=== PATIENT | male | born 1970 | race African-American/Black ===

== ENCOUNTER 2019-06-13 05:44 | Observation (INO) ==
[2019-06-13] MEDS ORDERED: ALBUTEROL/IPRATROPIUM 3 ML NEB RESP TX STA (06:07)
[2019-06-13 06:31] LABS: Basophils % 0.4 % (0.0-0.8); Eosinophils # 0.1 10*3/uL (0.0-0.87); Eosinophils % 2.6 % (0.00-10.9); Hematocrit 42.8 VOL% (42.0-52.0); Immature Granulocytes % 0.2 %; Immature Granulocytes Absolute 0.01 #; Lymphocytes # 1.2 10*3/uL (1.4-4.0); Lymphocytes % 22.9 % (21.2-54.2); Mean Corpuscular HGB Conc 32.7 GM/DL (32-36); Mean Corpuscular Volume 91.8 FL (87-102); Mean Platelet Volume 11.8 FL (9.6-12.0); Neutrophils % 60.9 % (38.7-73.9); Platelet Count 179 T/CUMM (130-400); Red Blood Count 4.66 MC/CUMM (3.8-5.5); Red Cell Distribution Width 19.9 % (9.3-17.3); White Blood Count 5.1 T/CUMM (4-12)
[2019-06-13 07:04] LABS: Albumin 3.7 G/DL (3.4-5.0); Bilirubin,Total 0.9 MG/DL (0.2-1.0); Calcium 9.2 MG/DL (8.5-10.1); Osmolality,Calculated 285.5 MOS/KG (273-304); Total Protein 6.8 G/DL (6.4-8.3)
[2019-06-13] MEDS ORDERED: FUROSEMIDE 40 MG/4 ML VIAL IV STA (07:47)
[2019-06-13] MEDS ORDERED: ACETAMINOPHEN 325 MG TABLET PO PRN (10:25)
[2019-06-13] MEDS ORDERED: ONDANSETRON 4 MG/2 ML VIAL IV PRN (10:25)
[2019-06-13] MEDS ORDERED: ENOXAPARIN 30 MG/0.3 ML SYRINGE SUBCUT SCH (10:30)
[2019-06-13] MEDS ORDERED: CARVEDILOL 25 MG TABLET PO SCH (15:00)
[2019-06-13] MEDS ORDERED: LOSARTAN 25 MG TABLET PO SCH (15:00)
[2019-06-13] MEDS: DIGOXIN 0.125 MG TABLET PO SCH (15:06)
[2019-06-13] MEDS: SPIRONOLACTONE 25 MG TABLET PO SCH (15:07)
[2019-06-13] MEDS: FUROSEMIDE 40 MG/4 ML VIAL IV SCH (15:07)
[2019-06-13] MEDS: RIVAROXABAN 20 MG TABLET PO SCH (15:07)
[2019-06-13] MEDS: ATORVASTATIN 20 MG TABLET PO SCH (20:55)
[2019-06-13] MEDS ORDERED: SACUBITRIL/VALSARTAN 49-51 MG TABLET PO SCH (21:00)
[2019-06-13] MEDS: BACLOFEN 10 MG TABLET PO SCH (21:00)
[2019-06-14 05:49] LABS: Basophils % 0.7 % (0.0-0.8); Eosinophils # 0.1 10*3/uL (0.0-0.87); Eosinophils % 2.4 % (0.00-10.9); Hematocrit 39.1 VOL% (42.0-52.0); Hemoglobin 12.8 GM/DL (14.0-18.0); Immature Granulocytes % 0.2 %; Immature Granulocytes Absolute 0.01 #; Lymphocytes # 1.2 10*3/uL (1.4-4.0); Lymphocytes % 29.2 % (21.2-54.2); Mean Corpuscular HGB Conc 32.7 GM/DL (32-36); Mean Corpuscular Volume 91.1 FL (87-102); Mean Platelet Volume 12.3 FL (9.6-12.0); Neutrophils % 55.5 % (38.7-73.9); Platelet Count 173 T/CUMM (130-400); Red Blood Count 4.29 MC/CUMM (3.8-5.5); Red Cell Distribution Width 18.9 % (9.3-17.3); White Blood Count 4.2 T/CUMM (4-12)
[2019-06-14 06:00] LABS: Calcium 8.9 MG/DL (8.5-10.1); Osmolality,Calculated 287.3 MOS/KG (273-304)
[2019-06-14] MEDS: SPIRONOLACTONE 25 MG TABLET PO SCH (09:33)
[2019-06-14] MEDS: PANTOPRAZOLE 40 MG TABLET PO SCH (09:33)
[2019-06-14] MEDS: ASPIRIN EC 81 MG TABLET PO SCH (09:33)
[2019-06-14] MEDS: SACUBITRIL/VALSARTAN 49-51 MG TABLET PO SCH ×2 (09:33→21:24)
[2019-06-14] MEDS: CARVEDILOL 6.25 MG TABLET PO SCH ×2 (09:33→17:14)
[2019-06-14] MEDS: DIGOXIN 0.125 MG TABLET PO SCH (09:33)
[2019-06-14] MEDS: FUROSEMIDE 40 MG/4 ML VIAL IV SCH ×2 (09:34→17:14)
[2019-06-14] MEDS: RIVAROXABAN 20 MG TABLET PO SCH (09:34)
[2019-06-14] MEDS: BACLOFEN 10 MG TABLET PO SCH ×2 (09:35→21:21)
[2019-06-14] MEDS: ATORVASTATIN 20 MG TABLET PO SCH (21:21)
[2019-06-15 05:32] LABS: Basophils % 0.9 % (0.0-0.8); Eosinophils # 0.1 10*3/uL (0.0-0.87); Eosinophils % 3.1 % (0.00-10.9); Hematocrit 38.4 VOL% (42.0-52.0); Hemoglobin 12.6 GM/DL (14.0-18.0); Immature Granulocytes % 0.3 %; Immature Granulocytes Absolute 0.01 #; Lymphocytes % 30.7 % (21.2-54.2); Mean Corpuscular HGB Conc 32.8 GM/DL (32-36); Mean Corpuscular Volume 90.6 FL (87-102); Mean Platelet Volume 11.6 FL (9.6-12.0); Monocytes % 13.2 % (1.7-12.7); Neutrophils % 51.8 % (38.7-73.9); Platelet Count 168 T/CUMM (130-400); Red Blood Count 4.24 MC/CUMM (3.8-5.5); Red Cell Distribution Width 18.8 % (9.3-17.3); White Blood Count 3.3 T/CUMM (4-12)
[2019-06-15 06:08] LABS: Calcium 8.9 MG/DL (8.5-10.1); Osmolality,Calculated 289.1 MOS/KG (273-304)
[2019-06-15 07:21] VITALS: BP 106/76
[2019-06-15] MEDS ORDERED: FUROSEMIDE 40 MG TABLET PO SCH (09:00)
[2019-06-15] MEDS: DIGOXIN 0.125 MG TABLET PO SCH (09:30)
[2019-06-15] MEDS: ASPIRIN EC 81 MG TABLET PO SCH (09:30)
[2019-06-15] MEDS: SACUBITRIL/VALSARTAN 49-51 MG TABLET PO SCH (09:31)
[2019-06-15] MEDS: PANTOPRAZOLE 40 MG TABLET PO SCH (09:31)
[2019-06-15] MEDS: RIVAROXABAN 20 MG TABLET PO SCH (09:31)
[2019-06-15] MEDS: CARVEDILOL 6.25 MG TABLET PO SCH (09:31)
[2019-06-15] MEDS: BACLOFEN 10 MG TABLET PO SCH (09:31)
[2019-06-15] MEDS: SPIRONOLACTONE 25 MG TABLET PO SCH (09:31)
[2019-06-15] MEDS: FUROSEMIDE 40 MG/4 ML VIAL IV SCH (09:55)
== END 2019-06-15 09:45 | disposition home or self-care (01) ==
LOC: N.ED 05:44 → N.EDINP 05:44 → N.2E 11:45
PROVIDERS: ADMIT Internal Medicine Cardiovascular Disease; ATTEND Internal Medicine Cardiovascular Disease

== ENCOUNTER 2019-06-20 10:16 | Inpatient (IN) ==
[2019-06-20 11:29] LABS: Basophils % 0.8 % (0.0-0.8); Eosinophils # 0.2 10*3/uL (0.0-0.87); Eosinophils % 4.1 % (0.00-10.9); Hematocrit 40.3 VOL% (42.0-52.0); Hemoglobin 13.2 GM/DL (14.0-18.0); Lymphocytes # 0.8 10*3/uL (1.4-4.0); Lymphocytes % 22.2 % (21.2-54.2); Mean Corpuscular HGB Conc 32.8 GM/DL (32-36); Mean Corpuscular Volume 92.2 FL (87-102); Mean Platelet Volume 11.6 FL (9.6-12.0); Monocytes % 11.4 % (1.7-12.7); NRBC # 0.03 10*3/uL; Neutrophils % 61.5 % (38.7-73.9); Platelet Count 174 T/CUMM (130-400); Red Blood Count 4.37 MC/CUMM (3.8-5.5); Red Cell Distribution Width 19.2 % (9.3-17.3); White Blood Count 3.7 T/CUMM (4-12)
[2019-06-20 11:42] LABS: INR 1.6; PT Patient Result 17.1 SECS (9.6-12.2); Partial Thromboplastin Time 31.1 SECS (20.8-36.0)
[2019-06-20 11:50] LABS: Alanine Aminotransferase 45 U/L (16-61); Albumin 3.3 G/DL (3.4-5.0); Alkaline Phosphatase 74 U/L (45-117); Aspartate Amino Transferase 26 U/L (0-37); Blood Urea Nitrogen 25 MG/DL (7-18); Calcium 9.1 MG/DL (8.5-10.1); Glucose 126 MG/DL (74-106); Osmolality,Calculated 288.1 MOS/KG (273-304); Total Protein 6.4 G/DL (6.4-8.3); Troponin I 0.026 NG/ML (0.00-0.045)
[2019-06-20] MEDS ORDERED: DOCUSATE SODIUM 100 MG CAPSULE PO PRN (12:57)
[2019-06-20] MEDS ORDERED: ACETAMINOPHEN 325 MG TABLET PO PRN (12:57)
[2019-06-20] MEDS ORDERED: MAGNESIUM SULF RIDER 2 GM in PREMIX 1 EACH IV PRN (12:57)
[2019-06-20] MEDS ORDERED: ONDANSETRON 4 MG/2 ML VIAL IV PRN (12:57)
[2019-06-20] MEDS ORDERED: POTASSIUM CHLORIDE 20 MEQ TABLET PO PRN (12:57)
[2019-06-20] MEDS ORDERED: ZALEPLON 5 MG CAPSULE PO PRN (12:57)
[2019-06-20] MEDS ORDERED: MAGNESIUM SULF RIDER 4 GM in PREMIX 1 EACH IV PRN (12:57)
[2019-06-20] MEDS ORDERED: ENOXAPARIN 40 MG/0.4 ML SYRINGE SUBCUT SCH (13:00)
[2019-06-20] MEDS: FUROSEMIDE 40 MG/4 ML VIAL IV SCH ×2 (13:22→21:43)
[2019-06-20 15:04] LABS: Troponin I 0.019 NG/ML (0.00-0.045)
[2019-06-20] MEDS: CARVEDILOL 6.25 MG TABLET PO SCH (16:32)
[2019-06-20 17:00] LABS: Troponin I 0.023 NG/ML (0.00-0.045)
[2019-06-20] MEDS ORDERED: diphenhydrAMINE CAP 25 MG CAPSULE PO PRN (17:05)
[2019-06-20] MEDS ORDERED: MAGNESIUM HYDROXIDE SUSP 30 ML UDCUP PO PRN (17:05)
[2019-06-20 17:11] LABS: Barbiturates Screen,Urine Negative (Negative); Benzodiazepines Screen,Urine Negative (Negative); Cannabinoid Screen,Urine Negative (Negative); Opiate Screen,Urine Negative (Negative); Phencyclidine Screen,Urine Negative (Negative)
[2019-06-20 20:10] LABS: Troponin I 0.029 NG/ML (0.00-0.045)
[2019-06-20] MEDS: BACLOFEN 10 MG TABLET PO SCH (21:42)
[2019-06-20] MEDS: SACUBITRIL/VALSARTAN 49-51 MG TABLET PO SCH (21:42)
[2019-06-20] MEDS: ATORVASTATIN 20 MG TABLET PO SCH (21:42)
[2019-06-21 06:54] LABS: Basophils % 1.1 % (0.0-0.8); Eosinophils # 0.2 10*3/uL (0.0-0.87); Eosinophils % 4.5 % (0.00-10.9); Hematocrit 39.4 VOL% (42.0-52.0); Hemoglobin 12.8 GM/DL (14.0-18.0); Immature Granulocytes % 0.3 %; Immature Granulocytes Absolute 0.01 #; Lymphocytes % 26.8 % (21.2-54.2); Mean Corpuscular HGB Conc 32.5 GM/DL (32-36); Mean Corpuscular Volume 91.6 FL (87-102); Mean Platelet Volume 12.1 FL (9.6-12.0); Monocytes % 13.4 % (1.7-12.7); Neutrophils % 53.9 % (38.7-73.9); Platelet Count 166 T/CUMM (130-400); Red Cell Distribution Width 19.2 % (9.3-17.3); White Blood Count 3.6 T/CUMM (4-12)
[2019-06-21 07:28] LABS: Calcium 8.8 MG/DL (8.5-10.1)
[2019-06-21] MEDS: BACLOFEN 10 MG TABLET PO SCH ×2 (09:43→21:31)
[2019-06-21] MEDS: ASPIRIN EC 81 MG TABLET PO SCH (09:43)
[2019-06-21] MEDS: SPIRONOLACTONE 25 MG TABLET PO SCH (09:43)
[2019-06-21] MEDS: PANTOPRAZOLE 40 MG TABLET PO SCH (09:43)
[2019-06-21] MEDS: RIVAROXABAN 20 MG TABLET PO SCH (09:43)
[2019-06-21] MEDS: CARVEDILOL 6.25 MG TABLET PO SCH ×2 (09:43→17:11)
[2019-06-21] MEDS: FUROSEMIDE 40 MG/4 ML VIAL IV SCH ×2 (09:44→21:31)
[2019-06-21] MEDS: NICOTINE 21 MG/24 HR PATCH TRANSDERM SCH (13:53)
[2019-06-21] MEDS: SACUBITRIL/VALSARTAN 49-51 MG TABLET PO SCH ×2 (14:46→21:31)
[2019-06-21] MEDS: AMIODARONE 200 MG TABLET PO SCH (21:31)
[2019-06-21] MEDS: ATORVASTATIN 20 MG TABLET PO SCH (21:31)
[2019-06-22] MEDS: NICOTINE 21 MG/24 HR PATCH TRANSDERM SCH (08:55)
[2019-06-22] MEDS: FUROSEMIDE 40 MG/4 ML VIAL IV SCH (08:57)
[2019-06-22] MEDS: AMIODARONE 200 MG TABLET PO SCH ×2 (08:59→20:56)
[2019-06-22] MEDS: CARVEDILOL 6.25 MG TABLET PO SCH ×2 (08:59→17:05)
[2019-06-22] MEDS: RIVAROXABAN 20 MG TABLET PO SCH (08:59)
[2019-06-22] MEDS: ASPIRIN EC 81 MG TABLET PO SCH (08:59)
[2019-06-22] MEDS: PANTOPRAZOLE 40 MG TABLET PO SCH (09:00)
[2019-06-22] MEDS: SPIRONOLACTONE 25 MG TABLET PO SCH (09:00)
[2019-06-22] MEDS: BACLOFEN 10 MG TABLET PO SCH ×2 (09:00→20:56)
[2019-06-22] MEDS: SACUBITRIL/VALSARTAN 49-51 MG TABLET PO SCH ×2 (09:24→20:56)
[2019-06-22] MEDS ORDERED: DIGOXIN 0.125 MG TABLET PO SCH (13:00)
[2019-06-22] MEDS: ATORVASTATIN 20 MG TABLET PO SCH (20:56)
[2019-06-23 05:53] LABS: Eosinophils # 0.1 10*3/uL (0.0-0.87); Eosinophils % 2.5 % (0.00-10.9); Hematocrit 39.5 VOL% (42.0-52.0); Hemoglobin 13.1 GM/DL (14.0-18.0); Immature Granulocytes % 0.2 %; Immature Granulocytes Absolute 0.01 #; Lymphocytes # 1.1 10*3/uL (1.4-4.0); Lymphocytes % 26.2 % (21.2-54.2); Mean Corpuscular HGB Conc 33.2 GM/DL (32-36); Mean Corpuscular Volume 91.2 FL (87-102); Mean Platelet Volume 12.3 FL (9.6-12.0); Monocytes % 10.6 % (1.7-12.7); NRBC # 0.02 10*3/uL; Neutrophils % 59.5 % (38.7-73.9); Platelet Count 163 T/CUMM (130-400); Red Blood Count 4.33 MC/CUMM (3.8-5.5); Red Cell Distribution Width 18.5 % (9.3-17.3)
[2019-06-23 06:16] LABS: Calcium 8.8 MG/DL (8.5-10.1); Osmolality,Calculated 282.5 MOS/KG (273-304)
[2019-06-23] MEDS ORDERED: FUROSEMIDE 40 MG/4 ML VIAL IV SCH (08:00)
[2019-06-23] MEDS: ASPIRIN EC 81 MG TABLET PO SCH (09:15)
[2019-06-23] MEDS: metOLazone 2.5 MG TABLET PO SCH ×2 (09:15→09:23)
[2019-06-23] MEDS: SPIRONOLACTONE 25 MG TABLET PO SCH (09:15)
[2019-06-23] MEDS: AMIODARONE 200 MG TABLET PO SCH (09:15)
[2019-06-23] MEDS: RIVAROXABAN 20 MG TABLET PO SCH (09:15)
[2019-06-23] MEDS: BACLOFEN 10 MG TABLET PO SCH (09:16)
[2019-06-23] MEDS: NICOTINE 21 MG/24 HR PATCH TRANSDERM SCH (09:16)
[2019-06-23] MEDS: PANTOPRAZOLE 40 MG TABLET PO SCH (09:16)
[2019-06-23] MEDS: SACUBITRIL/VALSARTAN 49-51 MG TABLET PO SCH (09:16)
[2019-06-23] MEDS: CARVEDILOL 6.25 MG TABLET PO SCH (09:16)
[2019-06-23 12:05] VITALS: BP 99/56
== END 2019-06-23 16:04 | disposition home or self-care (01) | DRG 194 ==
LOC: N.ED 10:16 → N.EDINP 10:16 → N.TELEN 13:30
PROVIDERS: ADMIT Internal Medicine Cardiovascular Disease; ATTEND Internal Medicine Cardiovascular Disease

== ENCOUNTER 2019-07-11 18:23 | Inpatient (IN) ==
[2019-07-11 18:59] LABS: Hematocrit 42.5 VOL% (42.0-52.0); Immature Granulocytes % 0.4 %; Immature Granulocytes Absolute 0.02 #
[2019-07-11] MEDS ORDERED: SODIUM CHLORIDE 0.9% 1,000 ML IV STA ×3 (19:16→20:53)
[2019-07-11 19:23] LABS: Basophils % 0.4 % (0.0-0.8); Eosinophils # 0.1 10*3/uL (0.0-0.87); Eosinophils % 2.3 % (0.00-10.9); Hemoglobin 15.7 GM/DL (14.0-18.0); Lymphocytes # 0.6 10*3/uL (1.4-4.0); Lymphocytes % 12.6 % (21.2-54.2); Mean Corpuscular HGB Conc 36.9 GM/DL (32-36); Mean Corpuscular Volume 81.7 FL (87-102); Mean Platelet Volume 10.7 FL (9.6-12.0); Monocytes % 11.2 % (1.7-12.7); Neutrophils % 73.1 % (38.7-73.9); Platelet Count 192 T/CUMM (130-400); White Blood Count 4.8 T/CUMM (4-12)
[2019-07-11 19:24] LABS: Alanine Aminotransferase 14 U/L (16-61); Albumin 3.9 G/DL (3.4-5.0); Alkaline Phosphatase 66 U/L (45-117); Aspartate Amino Transferase 8 U/L (0-37); Blood Urea Nitrogen 102 MG/DL (7-18); Calcium 8.9 MG/DL (8.5-10.1); Estimated Glom Filtration Rate 8 ML/MIN; Glucose 123 MG/DL (74-106); Osmolality,Calculated 266.8 MOS/KG (273-304); Total Protein 7.2 G/DL (6.4-8.3)
[2019-07-11] MEDS ORDERED: NOREPINEPHRINE 4 MG/4 ML VIAL IV ONE (19:43)
[2019-07-11] MEDS: NOREPINEPHRINE 8 MG in SODIUM CHLORIDE 0.9% 242 ML IV PRN (19:46)
[2019-07-11 19:59] LABS: Troponin I 0.034 NG/ML (0.00-0.045)
[2019-07-11] MEDS ORDERED: SODIUM BICARBONATE 50 MEQ/50 ML VIAL IV STA (20:51)
[2019-07-11] MEDS ORDERED: SODIUM BICARB INJ 50 MEQ in SODIUM CHLORIDE 0.9% 1,000 ML IV STA (21:14)
[2019-07-11] MEDS ORDERED: SODIUM BICARBONATE 50 MEQ/50 ML SYRINGE IV ONE (21:40)
[2019-07-11] MEDS ORDERED: MORPHINE 4 MG/1 ML VIAL IV PRN (22:58)
[2019-07-11] MEDS: SODIUM BICARB INJ 100 MEQ in SODIUM CHLORIDE 0.9% 1,000 ML IV SCH (23:42)
[2019-07-12] MEDS: NOREPINEPHRINE 8 MG in SODIUM CHLORIDE 0.9% 242 ML IV PRN ×6 (01:45→22:19)
[2019-07-12 04:52] LABS: Basophils % 0.4 % (0.0-0.8); Eosinophils # 0.1 10*3/uL (0.0-0.87); Eosinophils % 1.5 % (0.00-10.9); Hematocrit 38.6 VOL% (42.0-52.0); Immature Granulocytes % 0.4 %; Immature Granulocytes Absolute 0.02 #; Lymphocytes # 0.5 10*3/uL (1.4-4.0); Lymphocytes % 10.1 % (21.2-54.2); Mean Corpuscular HGB Conc 36.3 GM/DL (32-36); Mean Corpuscular Volume 83.4 FL (87-102); Monocytes % 10.8 % (1.7-12.7); Neutrophils % 76.8 % (38.7-73.9); Platelet Count 159 T/CUMM (130-400); Red Blood Count 4.63 MC/CUMM (3.8-5.5); Red Cell Distribution Width 15.4 % (9.3-17.3); White Blood Count 5.4 T/CUMM (4-12)
[2019-07-12 05:18] LABS: Calcium 7.9 MG/DL (8.5-10.1); Osmolality,Calculated 281.8 MOS/KG (273-304)
[2019-07-12] MEDS ORDERED: carvediloL 6.25 MG TABLET PO SCH (08:00)
[2019-07-12] MEDS: PANTOPRAZOLE 40 MG TABLET PO SCH (08:49)
[2019-07-12] MEDS: ENOXAPARIN 30 MG/0.3 ML SYRINGE SUBCUT SCH (08:49)
[2019-07-12] MEDS: ONDANSETRON 4 MG/2 ML VIAL IV PRN ×2 (08:49→19:38)
[2019-07-12] MEDS: SODIUM BICARB INJ 100 MEQ in SODIUM CHLORIDE 0.9% 1,000 ML IV SCH (10:02)
[2019-07-12 12:21] LABS: Apearance,Urine CLEAR (Clear); Bilirubin,Urine Negative (Negative); Blood, Urine Large mg/dL (Negative); Glucose,Urine (UA) Negative (Negative); Ketones,Urine Negative (Negative); Nitrite,Urine Negative (Negative); Protein,Urine 100 MG/DL; RBC,Urine 2734 /HPF (0-4); Urine Color Red (Yellow); Urine Specific Gravity 1.008 (1.001-1.035); Urine Urobilinogen < 2.0 EU/DL (0.2-1.0); WBC,Urine 153 /HPF (0-6)
[2019-07-12] MEDS: ASPIRIN EC 81 MG TABLET PO SCH (12:38)
[2019-07-12] MEDS: SODIUM CHLORIDE 0.9% 1,000 ML IV SCH (14:52)
[2019-07-12] MEDS: ATORVASTATIN 20 MG TABLET PO SCH (21:57)
[2019-07-13] MEDS: SODIUM CHLORIDE 0.9% 1,000 ML IV SCH ×3 (01:00→11:15)
[2019-07-13] MEDS: NOREPINEPHRINE 8 MG in SODIUM CHLORIDE 0.9% 242 ML IV PRN ×3 (04:00→16:25)
[2019-07-13 05:14] LABS: Basophils % 0.4 % (0.0-0.8); Eosinophils # 0.1 10*3/uL (0.0-0.87); Eosinophils % 0.8 % (0.00-10.9); Hematocrit 37.8 VOL% (42.0-52.0); Hemoglobin 13.3 GM/DL (14.0-18.0); Immature Granulocytes % 0.4 %; Immature Granulocytes Absolute 0.03 #; Lymphocytes # 0.6 10*3/uL (1.4-4.0); Lymphocytes % 7.5 % (21.2-54.2); Mean Corpuscular HGB Conc 35.2 GM/DL (32-36); Mean Corpuscular Volume 84.8 FL (87-102); Mean Platelet Volume 11.6 FL (9.6-12.0); Neutrophils % 82.9 % (38.7-73.9); Platelet Count 154 T/CUMM (130-400); Red Blood Count 4.46 MC/CUMM (3.8-5.5); Red Cell Distribution Width 15.8 % (9.3-17.3); White Blood Count 7.3 T/CUMM (4-12)
[2019-07-13 05:44] LABS: Calcium 8.2 MG/DL (8.5-10.1); Osmolality,Calculated 286.8 MOS/KG (273-304)
[2019-07-13] MEDS ORDERED: DIGOXIN 0.125 MG TABLET PO SCH (09:00)
[2019-07-13] MEDS: ASPIRIN EC 81 MG TABLET PO SCH (09:10)
[2019-07-13] MEDS: ENOXAPARIN 30 MG/0.3 ML SYRINGE SUBCUT SCH (09:10)
[2019-07-13] MEDS: PANTOPRAZOLE 40 MG TABLET PO SCH (09:10)
[2019-07-13] MEDS ORDERED: POTASSIUM CHLORIDE 20 MEQ TABLET PO ONE (12:21)
[2019-07-13] MEDS: AMIODARONE 200 MG TABLET PO SCH (13:47)
[2019-07-13] MEDS: ATORVASTATIN 20 MG TABLET PO SCH (20:48)
[2019-07-13] MEDS ORDERED: LOPERAMIDE 2 MG CAPSULE PO PRN (21:32)
[2019-07-13] MEDS: NICOTINE 14 MG/24 HR PATCH TRANSDERM SCH (22:01)
[2019-07-14] MEDS: SODIUM CHLORIDE 0.9% 1,000 ML IV SCH ×2 (00:15→14:31)
[2019-07-14 05:35] LABS: Eosinophils # 0.1 10*3/uL (0.0-0.87); Eosinophils % 2.6 % (0.00-10.9); Immature Granulocytes % 0.5 %; Immature Granulocytes Absolute 0.02 #; Lymphocytes # 0.6 10*3/uL (1.4-4.0); Lymphocytes % 15.6 % (21.2-54.2); Mean Corpuscular HGB Conc 34.2 GM/DL (32-36); Mean Corpuscular Volume 86.6 FL (87-102); Monocytes % 12.2 % (1.7-12.7); Neutrophils % 68.1 % (38.7-73.9); Platelet Count 141 T/CUMM (130-400); Red Blood Count 4.39 MC/CUMM (3.8-5.5); Red Cell Distribution Width 16.3 % (9.3-17.3); White Blood Count 3.9 T/CUMM (4-12)
[2019-07-14 05:52] LABS: Calcium 9.1 MG/DL (8.5-10.1); Osmolality,Calculated 296.8 MOS/KG (273-304)
[2019-07-14] MEDS ORDERED: POTASSIUM CHLORIDE 20 MEQ TABLET PO ONE (08:57)
[2019-07-14] MEDS: ENOXAPARIN 30 MG/0.3 ML SYRINGE SUBCUT SCH (09:58)
[2019-07-14] MEDS: NICOTINE 14 MG/24 HR PATCH TRANSDERM SCH (09:58)
[2019-07-14] MEDS: ASPIRIN EC 81 MG TABLET PO SCH (09:59)
[2019-07-14] MEDS: AMIODARONE 200 MG TABLET PO SCH (09:59)
[2019-07-14] MEDS: PANTOPRAZOLE 40 MG TABLET PO SCH (10:00)
[2019-07-14] MEDS: carvediloL 3.125 MG TABLET PO SCH (21:38)
[2019-07-14] MEDS: ATORVASTATIN 20 MG TABLET PO SCH (21:38)
[2019-07-15] MEDS: SODIUM CHLORIDE 0.9% 1,000 ML IV SCH ×2 (03:54→20:52)
[2019-07-15 06:04] LABS: Basophils % 0.4 % (0.0-0.8); Eosinophils # 0.1 10*3/uL (0.0-0.87); Eosinophils % 2.7 % (0.00-10.9); Hematocrit 37.7 VOL% (42.0-52.0); Hemoglobin 13.1 GM/DL (14.0-18.0); Immature Granulocytes % 0.2 %; Immature Granulocytes Absolute 0.01 #; Lymphocytes # 0.4 10*3/uL (1.4-4.0); Lymphocytes % 8.2 % (21.2-54.2); Mean Corpuscular HGB Conc 34.7 GM/DL (32-36); Mean Corpuscular Volume 87.1 FL (87-102); Mean Platelet Volume 11.6 FL (9.6-12.0); Monocytes % 9.4 % (1.7-12.7); Neutrophils % 79.1 % (38.7-73.9); Platelet Count 143 T/CUMM (130-400); Red Blood Count 4.33 MC/CUMM (3.8-5.5); Red Cell Distribution Width 16.6 % (9.3-17.3); White Blood Count 4.9 T/CUMM (4-12)
[2019-07-15 06:22] LABS: Calcium 9.1 MG/DL (8.5-10.1); Osmolality,Calculated 300.1 MOS/KG (273-304)
[2019-07-15] MEDS: carvediloL 3.125 MG TABLET PO SCH ×2 (08:57→20:52)
[2019-07-15] MEDS: PANTOPRAZOLE 40 MG TABLET PO SCH (08:57)
[2019-07-15] MEDS: ASPIRIN EC 81 MG TABLET PO SCH (08:58)
[2019-07-15] MEDS: ENOXAPARIN 40 MG/0.4 ML SYRINGE SUBCUT SCH (08:58)
[2019-07-15] MEDS: AMIODARONE 200 MG TABLET PO SCH (08:58)
[2019-07-15] MEDS: NICOTINE 14 MG/24 HR PATCH TRANSDERM SCH (08:58)
[2019-07-15] MEDS: ATORVASTATIN 20 MG TABLET PO SCH (20:52)
[2019-07-16 05:38] LABS: Basophils % 0.4 % (0.0-0.8); Eosinophils # 0.2 10*3/uL (0.0-0.87); Hematocrit 38.5 VOL% (42.0-52.0); Hemoglobin 13.2 GM/DL (14.0-18.0); Immature Granulocytes % 0.2 %; Immature Granulocytes Absolute 0.01 #; Lymphocytes # 0.8 10*3/uL (1.4-4.0); Mean Corpuscular HGB Conc 34.3 GM/DL (32-36); Mean Corpuscular Volume 88.7 FL (87-102); Monocytes % 9.9 % (1.7-12.7); Neutrophils % 68.5 % (38.7-73.9); Platelet Count 139 T/CUMM (130-400); Red Blood Count 4.34 MC/CUMM (3.8-5.5); Red Cell Distribution Width 17.2 % (9.3-17.3); White Blood Count 4.5 T/CUMM (4-12)
[2019-07-16 05:53] LABS: Calcium 8.8 MG/DL (8.5-10.1); Osmolality,Calculated 291.4 MOS/KG (273-304)
[2019-07-16] MEDS: AMIODARONE 200 MG TABLET PO SCH (08:23)
[2019-07-16] MEDS: ASPIRIN EC 81 MG TABLET PO SCH (08:23)
[2019-07-16] MEDS: PANTOPRAZOLE 40 MG TABLET PO SCH (08:24)
[2019-07-16] MEDS: ENOXAPARIN 40 MG/0.4 ML SYRINGE SUBCUT SCH (08:24)
[2019-07-16] MEDS: carvediloL 3.125 MG TABLET PO SCH ×2 (08:24→20:54)
[2019-07-16] MEDS: NICOTINE 14 MG/24 HR PATCH TRANSDERM SCH (11:41)
[2019-07-16] MEDS: ATORVASTATIN 20 MG TABLET PO SCH (20:54)
[2019-07-17 08:15] LABS: Basophils % 0.7 % (0.0-0.8); Eosinophils # 0.1 10*3/uL (0.0-0.87); Eosinophils % 1.7 % (0.00-10.9); Hematocrit 39.2 VOL% (42.0-52.0); Hemoglobin 13.4 GM/DL (14.0-18.0); Immature Granulocytes % 0.4 %; Immature Granulocytes Absolute 0.02 #; Lymphocytes # 0.8 10*3/uL (1.4-4.0); Lymphocytes % 14.5 % (21.2-54.2); Mean Corpuscular HGB Conc 34.2 GM/DL (32-36); Mean Corpuscular Volume 88.1 FL (87-102); Mean Platelet Volume 11.3 FL (9.6-12.0); Monocytes % 8.1 % (1.7-12.7); NRBC # 0.05 10*3/uL; Neutrophils % 74.6 % (38.7-73.9); Platelet Count 153 T/CUMM (130-400); Red Blood Count 4.45 MC/CUMM (3.8-5.5); Red Cell Distribution Width 17.5 % (9.3-17.3); White Blood Count 5.4 T/CUMM (4-12)
[2019-07-17] MEDS: ENOXAPARIN 40 MG/0.4 ML SYRINGE SUBCUT SCH (08:15)
[2019-07-17] MEDS: AMIODARONE 200 MG TABLET PO SCH (08:28)
[2019-07-17] MEDS: ASPIRIN EC 81 MG TABLET PO SCH (08:30)
[2019-07-17] MEDS: carvediloL 3.125 MG TABLET PO SCH (08:31)
[2019-07-17] MEDS: PANTOPRAZOLE 40 MG TABLET PO SCH (08:31)
[2019-07-17] MEDS: NICOTINE 14 MG/24 HR PATCH TRANSDERM SCH (08:31)
[2019-07-17 11:06] VITALS: BP 100/72
[2019-07-17] MEDS ORDERED: SACUBITRIL/VALSARTAN 49-51 MG TABLET PO SCH (11:16)
[2019-07-17] MEDS ORDERED: RIVAROXABAN 20 MG TABLET PO SCH (12:32)
[2019-07-17] MEDS ORDERED: FUROSEMIDE 40 MG TABLET PO SCH (13:00)
[2019-07-18] MEDS ORDERED: RIVAROXABAN 20 MG TABLET PO SCH (08:00)
[2019-07-18] MEDS ORDERED: AMIODARONE 200 MG TABLET PO SCH (09:00)
== END 2019-07-17 15:05 | disposition home or self-care (01) | DRG 469 ==
LOC: N.ED 18:23 → SUATTDRO 22:58 → N.EDINP 22:58 → N.CC 23:35 → N.5E 07-14 15:13
PROVIDERS: ADMIT Internal Medicine; ATTEND Internal Medicine

== ENCOUNTER 2019-12-07 08:30 | Inpatient (IN) ==
[2019-12-07] MEDS ORDERED: MAGNESIUM SULF RIDER 2 GM in PREMIX 1 EACH IV PRN (09:56)
[2019-12-07] MEDS ORDERED: ALUMINUM/MAGNES/SIMETH MAX STR 30 ML UDCUP PO PRN (09:56)
[2019-12-07] MEDS ORDERED: DOCUSATE SODIUM 100 MG CAPSULE PO PRN (09:56)
[2019-12-07] MEDS ORDERED: hydrALAZINE 20 MG/1 ML VIAL IV PRN (09:56)
[2019-12-07] MEDS ORDERED: MAGNESIUM SULF RIDER 4 GM in PREMIX 1 EACH IV PRN (09:56)
[2019-12-07] MEDS ORDERED: ONDANSETRON 4 MG/2 ML VIAL IV PRN (09:56)
[2019-12-07] MEDS ORDERED: ENOXAPARIN 40 MG/0.4 ML SYRINGE SUBCUT SCH (10:00)
[2019-12-07 10:52] LABS: Basophils % 0.7 % (0.0-0.8); Eosinophils % 0.2 % (0.00-10.9); Hematocrit 20.4 VOL% (42.0-52.0); Immature Granulocytes % 0.5 %; Immature Granulocytes Absolute 0.02 #; Lymphocytes # 0.5 10*3/uL (1.4-4.0); Lymphocytes % 10.1 % (21.2-54.2); Mean Corpuscular HGB Conc 31.4 GM/DL (32-36); Mean Corpuscular Volume 85.4 FL (87-102); Mean Platelet Volume 11.5 FL (9.6-12.0); NRBC # 0.07 10*3/uL; Neutrophils % 81.5 % (38.7-73.9); Platelet Count 308 T/CUMM (130-400); Red Blood Count 2.39 MC/CUMM (3.8-5.5); Red Cell Distribution Width 18.5 % (9.3-17.3); White Blood Count 4.4 T/CUMM (4-12)
[2019-12-07 11:18] LABS: Hemoglobin 6.4 GM/DL (14.0-18.0)
[2019-12-07 11:22] LABS: Albumin 3.3 G/DL (3.4-5.0); Bilirubin,Total 1.2 MG/DL (0.2-1.0); Osmolality,Calculated 281.2 MOS/KG (273-304); Total Protein 6.9 G/DL (6.4-8.3)
[2019-12-07 11:29] LABS: Troponin I 0.062 NG/ML (0.00-0.045)
[2019-12-07] MEDS ORDERED: SODIUM CHLORIDE 0.9% 1,000 ML IV PRN (11:29)
[2019-12-07] MEDS: FUROSEMIDE 40 MG/4 ML VIAL IV SCH ×2 (11:51→18:13)
[2019-12-07] MEDS: PANTOPRAZOLE 40 MG TABLET PO SCH (11:51)
[2019-12-07] MEDS ORDERED: BACLOFEN 10 MG TABLET PO PRN (14:49)
[2019-12-07 17:12] LABS: Troponin I 0.069 NG/ML (0.00-0.045)
[2019-12-07 18:39] LABS: Hematocrit 25.8 VOL% (42.0-52.0); Hemoglobin 8.7 GM/DL (14.0-18.0)
[2019-12-07] MEDS ORDERED: carvediloL 3.125 MG TABLET PO SCH (21:00)
[2019-12-07] MEDS: ZALEPLON 5 MG CAPSULE PO PRN (21:08)
[2019-12-07] MEDS: ATORVASTATIN 20 MG TABLET PO SCH (21:08)
[2019-12-08 05:39] LABS: Basophils # 0.1 10*3/uL (0.0-0.2); Eosinophils # 0.1 10*3/uL (0.0-0.87); Eosinophils % 1.4 % (0.00-10.9); Hematocrit 27.4 VOL% (42.0-52.0); Hemoglobin 8.7 GM/DL (14.0-18.0); Immature Granulocytes % 0.3 %; Immature Granulocytes Absolute 0.02 #; Lymphocytes # 0.6 10*3/uL (1.4-4.0); Lymphocytes % 10.6 % (21.2-54.2); Mean Corpuscular HGB Conc 31.8 GM/DL (32-36); Mean Corpuscular Volume 85.4 FL (87-102); Mean Platelet Volume 11.1 FL (9.6-12.0); Monocytes % 9.4 % (1.7-12.7); NRBC # 0.14 10*3/uL; Neutrophils % 77.3 % (38.7-73.9); Platelet Count 300 T/CUMM (130-400); Red Blood Count 3.21 MC/CUMM (3.8-5.5); Red Cell Distribution Width 18.5 % (9.3-17.3); White Blood Count 5.7 T/CUMM (4-12)
[2019-12-08 05:46] LABS: Calcium 9.2 MG/DL (8.5-10.1); Osmolality,Calculated 285.1 MOS/KG (273-304); Risk Ratio 1.88; VLDL CHOLESTEROL 9.2 MG/DL
[2019-12-08] MEDS ORDERED: FUROSEMIDE 20 MG/2 ML VIAL ONE (09:38)
[2019-12-08] MEDS: METOPROLOL SUCCINATE XL 25 MG TABLET PO SCH (09:47)
[2019-12-08] MEDS: FUROSEMIDE 40 MG/4 ML VIAL IV SCH (09:47)
[2019-12-08] MEDS: AMIODARONE 200 MG TABLET PO SCH (09:47)
[2019-12-08] MEDS: PANTOPRAZOLE 40 MG TABLET PO SCH (09:47)
[2019-12-08] MEDS: DOBUTamine 500 MG/250 ML PREMIX IV SCH (14:35)
[2019-12-08] MEDS: FUROSEMIDE 100 MG/10 ML VIAL IV SCH (17:32)
[2019-12-08] MEDS: ATORVASTATIN 20 MG TABLET PO SCH (21:25)
[2019-12-09 04:38] LABS: Basophils % 0.8 % (0.0-0.8); Eosinophils # 0.1 10*3/uL (0.0-0.87); Eosinophils % 2.6 % (0.00-10.9); Hematocrit 25.2 VOL% (42.0-52.0); Hemoglobin 7.9 GM/DL (14.0-18.0); Immature Granulocytes % 0.4 %; Immature Granulocytes Absolute 0.02 #; Lymphocytes # 0.6 10*3/uL (1.4-4.0); Mean Corpuscular HGB Conc 31.3 GM/DL (32-36); Mean Corpuscular Volume 87.5 FL (87-102); Mean Platelet Volume 11.7 FL (9.6-12.0); Monocytes % 8.6 % (1.7-12.7); NRBC # 0.15 10*3/uL; Neutrophils % 76.6 % (38.7-73.9); Platelet Count 278 T/CUMM (130-400); Red Blood Count 2.88 MC/CUMM (3.8-5.5); Red Cell Distribution Width 18.9 % (9.3-17.3); White Blood Count 5.1 T/CUMM (4-12)
[2019-12-09 05:03] LABS: Calcium 9.2 MG/DL (8.5-10.1); Osmolality,Calculated 283.2 MOS/KG (273-304)
[2019-12-09 05:08] LABS: % Iron Saturation 7.7 % (18-50); Ferritin 125.5 ng/ml (26-388)
[2019-12-09] MEDS: FUROSEMIDE 100 MG/10 ML VIAL IV SCH ×2 (09:07→17:49)
[2019-12-09] MEDS: AMIODARONE 200 MG TABLET PO SCH (09:07)
[2019-12-09] MEDS: METOPROLOL SUCCINATE XL 25 MG TABLET PO SCH (09:07)
[2019-12-09] MEDS: PANTOPRAZOLE 40 MG TABLET PO SCH (09:07)
[2019-12-09] MEDS: hydrALAZINE 25 MG TABLET PO SCH ×2 (15:50→21:34)
[2019-12-09] MEDS: ISOSORBIDE DINITRATE 10 MG TABLET PO SCH ×2 (15:51→21:34)
[2019-12-09] MEDS: DOBUTamine 500 MG/250 ML PREMIX IV SCH (17:50)
[2019-12-09] MEDS: ATORVASTATIN 20 MG TABLET PO SCH (21:34)
[2019-12-10 06:55] LABS: Basophils % 0.6 % (0.0-0.8); Eosinophils # 0.1 10*3/uL (0.0-0.87); Eosinophils % 1.6 % (0.00-10.9); Hematocrit 23.5 VOL% (42.0-52.0); Hemoglobin 7.6 GM/DL (14.0-18.0); Immature Granulocytes % 0.4 %; Immature Granulocytes Absolute 0.02 #; Lymphocytes # 0.4 10*3/uL (1.4-4.0); Lymphocytes % 8.3 % (21.2-54.2); Mean Corpuscular HGB Conc 32.3 GM/DL (32-36); Mean Corpuscular Volume 84.8 FL (87-102); Mean Platelet Volume 11.8 FL (9.6-12.0); Monocytes % 8.1 % (1.7-12.7); NRBC # 0.13 10*3/uL; Platelet Count 265 T/CUMM (130-400); Red Blood Count 2.77 MC/CUMM (3.8-5.5); Red Cell Distribution Width 18.9 % (9.3-17.3); White Blood Count 5.1 T/CUMM (4-12)
[2019-12-10 07:17] LABS: Calcium 9.2 MG/DL (8.5-10.1); Osmolality,Calculated 283.1 MOS/KG (273-304)
[2019-12-10] MEDS: POTASSIUM CHLORIDE 20 MEQ TABLET PO PRN ×4 (09:53→18:05)
[2019-12-10] MEDS: ISOSORBIDE DINITRATE 10 MG TABLET PO SCH (09:53)
[2019-12-10] MEDS: hydrALAZINE 25 MG TABLET PO SCH ×3 (09:53→21:46)
[2019-12-10] MEDS: FUROSEMIDE 100 MG/10 ML VIAL IV SCH ×2 (09:53→16:32)
[2019-12-10] MEDS: AMIODARONE 200 MG TABLET PO SCH (09:53)
[2019-12-10] MEDS: PANTOPRAZOLE 40 MG TABLET PO SCH (09:53)
[2019-12-10] MEDS ORDERED: POTASSIUM CHLORIDE 20 MEQ/15 ML UDCUP PO ONE (11:03)
[2019-12-10] MEDS: ISOSORBIDE DINITRATE 20 MG TABLET PO SCH ×2 (15:00→21:47)
[2019-12-10] MEDS: ATORVASTATIN 20 MG TABLET PO SCH (21:47)
[2019-12-10] MEDS: DOBUTamine 500 MG/250 ML PREMIX IV SCH (21:50)
[2019-12-11 01:15] LABS: Calcium 9.1 MG/DL (8.5-10.1); Osmolality,Calculated 281.1 MOS/KG (273-304)
[2019-12-11 01:41] LABS: Basophils % 0.4 % (0.0-0.8); Eosinophils # 0.1 10*3/uL (0.0-0.87); Eosinophils % 1.3 % (0.00-10.9); Hematocrit 23.8 VOL% (42.0-52.0); Hemoglobin 7.7 GM/DL (14.0-18.0); Immature Granulocytes % 0.4 %; Immature Granulocytes Absolute 0.02 #; Lymphocytes # 0.5 10*3/uL (1.4-4.0); Lymphocytes % 9.3 % (21.2-54.2); Mean Corpuscular HGB Conc 32.4 GM/DL (32-36); Mean Corpuscular Volume 85.6 FL (87-102); Mean Platelet Volume 11.7 FL (9.6-12.0); Monocytes % 10.2 % (1.7-12.7); NRBC # 0.22 10*3/uL; Neutrophils % 78.4 % (38.7-73.9); Platelet Count 248 T/CUMM (130-400); Red Blood Count 2.78 MC/CUMM (3.8-5.5); Red Cell Distribution Width 19.4 % (9.3-17.3); White Blood Count 5.6 T/CUMM (4-12)
[2019-12-11] MEDS: AMIODARONE 200 MG TABLET PO SCH (09:31)
[2019-12-11] MEDS: hydrALAZINE 25 MG TABLET PO SCH ×3 (09:31→21:25)
[2019-12-11] MEDS: ISOSORBIDE DINITRATE 20 MG TABLET PO SCH ×3 (09:31→21:25)
[2019-12-11] MEDS: FUROSEMIDE 100 MG/10 ML VIAL IV SCH ×2 (09:31→16:35)
[2019-12-11] MEDS: PANTOPRAZOLE 40 MG TABLET PO SCH (09:31)
[2019-12-11] MEDS: ATORVASTATIN 20 MG TABLET PO SCH (21:25)
[2019-12-12] MEDS: DOBUTamine 500 MG/250 ML PREMIX IV SCH (03:26)
[2019-12-12 05:35] LABS: Basophils % 0.3 % (0.0-0.8); Eosinophils # 0.1 10*3/uL (0.0-0.87); Eosinophils % 1.5 % (0.00-10.9); Hematocrit 23.4 VOL% (42.0-52.0); Hemoglobin 7.5 GM/DL (14.0-18.0); Immature Granulocytes % 0.3 %; Immature Granulocytes Absolute 0.02 #; Lymphocytes # 0.5 10*3/uL (1.4-4.0); Lymphocytes % 8.6 % (21.2-54.2); Mean Corpuscular HGB Conc 32.1 GM/DL (32-36); Mean Corpuscular Volume 83.9 FL (87-102); Mean Platelet Volume 11.4 FL (9.6-12.0); Monocytes % 8.7 % (1.7-12.7); NRBC # 0.35 10*3/uL; Neutrophils % 80.6 % (38.7-73.9); Platelet Count 230 T/CUMM (130-400); Red Blood Count 2.79 MC/CUMM (3.8-5.5); Red Cell Distribution Width 20.1 % (9.3-17.3); White Blood Count 6.1 T/CUMM (4-12)
[2019-12-12 05:52] LABS: Calcium 9.2 MG/DL (8.5-10.1)
[2019-12-12] MEDS ORDERED: DOBUTamine 500 MG/250 ML PREMIX IV SCH (08:00)
[2019-12-12] MEDS: ISOSORBIDE DINITRATE 20 MG TABLET PO SCH ×3 (08:02→20:37)
[2019-12-12] MEDS: AMIODARONE 200 MG TABLET PO SCH (08:02)
[2019-12-12] MEDS: hydrALAZINE 25 MG TABLET PO SCH ×3 (08:02→20:38)
[2019-12-12] MEDS: PANTOPRAZOLE 40 MG TABLET PO SCH (08:02)
[2019-12-12] MEDS: FUROSEMIDE 100 MG/10 ML VIAL IV SCH (08:03)
[2019-12-12] MEDS ORDERED: SODIUM CHLORIDE 0.9% 1,000 ML IV PRN (12:14)
[2019-12-12] MEDS: FUROSEMIDE 40 MG/4 ML VIAL IV SCH (20:37)
[2019-12-12] MEDS: ATORVASTATIN 20 MG TABLET PO SCH (20:37)
[2019-12-12] MEDS: ZALEPLON 5 MG CAPSULE PO PRN (20:37)
[2019-12-13 04:36] LABS: Basophils % 0.4 % (0.0-0.8); Eosinophils % 0.5 % (0.00-10.9); Hematocrit 27.7 VOL% (42.0-52.0); Hemoglobin 8.8 GM/DL (14.0-18.0); Immature Granulocytes % 0.4 %; Immature Granulocytes Absolute 0.03 #; Lymphocytes # 0.6 10*3/uL (1.4-4.0); Lymphocytes % 6.7 % (21.2-54.2); Mean Corpuscular HGB Conc 31.8 GM/DL (32-36); Mean Corpuscular Volume 86.3 FL (87-102); Monocytes % 8.7 % (1.7-12.7); NRBC # 0.73 10*3/uL; Neutrophils % 83.3 % (38.7-73.9); Platelet Count 278 T/CUMM (130-400); Red Blood Count 3.21 MC/CUMM (3.8-5.5); Red Cell Distribution Width 19.3 % (9.3-17.3); White Blood Count 8.4 T/CUMM (4-12)
[2019-12-13 05:10] LABS: Calcium 9.7 MG/DL (8.5-10.1); Osmolality,Calculated 276.5 MOS/KG (273-304)
[2019-12-13] MEDS: FUROSEMIDE 40 MG/4 ML VIAL IV SCH ×2 (08:47→21:19)
[2019-12-13] MEDS: PANTOPRAZOLE 40 MG TABLET PO SCH (08:47)
[2019-12-13] MEDS: metOLazone 5 MG TABLET PO SCH ×3 (08:47→10:07)
[2019-12-13] MEDS: ISOSORBIDE DINITRATE 20 MG TABLET PO SCH ×3 (08:47→21:18)
[2019-12-13] MEDS: hydrALAZINE 25 MG TABLET PO SCH ×3 (08:47→21:18)
[2019-12-13] MEDS: AMIODARONE 200 MG TABLET PO SCH (08:47)
[2019-12-13] MEDS: DOBUTamine 500 MG/250 ML PREMIX IV SCH (12:27)
[2019-12-13] MEDS: ATORVASTATIN 20 MG TABLET PO SCH (21:18)
[2019-12-14] MEDS: DOBUTamine 500 MG/250 ML PREMIX IV SCH ×2 (04:45→13:20)
[2019-12-14 05:34] LABS: Basophils % 0.5 % (0.0-0.8); Eosinophils # 0.1 10*3/uL (0.0-0.87); Eosinophils % 0.9 % (0.00-10.9); Hematocrit 25.7 VOL% (42.0-52.0); Hemoglobin 8.2 GM/DL (14.0-18.0); Immature Granulocytes % 0.5 %; Immature Granulocytes Absolute 0.03 #; Lymphocytes # 0.5 10*3/uL (1.4-4.0); Lymphocytes % 7.4 % (21.2-54.2); Mean Corpuscular HGB Conc 31.9 GM/DL (32-36); Mean Platelet Volume 11.8 FL (9.6-12.0); Monocytes % 8.2 % (1.7-12.7); NRBC # 0.63 10*3/uL; Neutrophils % 82.5 % (38.7-73.9); Platelet Count 256 T/CUMM (130-400); Red Blood Count 2.99 MC/CUMM (3.8-5.5); Red Cell Distribution Width 19.7 % (9.3-17.3); White Blood Count 6.4 T/CUMM (4-12)
[2019-12-14 05:42] LABS: Calcium 9.6 MG/DL (8.5-10.1); Osmolality,Calculated 277.5 MOS/KG (273-304)
[2019-12-14] MEDS: ISOSORBIDE DINITRATE 20 MG TABLET PO SCH ×3 (10:58→21:18)
[2019-12-14] MEDS: metOLazone 5 MG TABLET PO SCH (10:58)
[2019-12-14] MEDS: AMIODARONE 200 MG TABLET PO SCH (10:58)
[2019-12-14] MEDS: hydrALAZINE 25 MG TABLET PO SCH ×3 (10:58→21:18)
[2019-12-14] MEDS: FUROSEMIDE 40 MG/4 ML VIAL IV SCH (10:59)
[2019-12-14] MEDS: PANTOPRAZOLE 40 MG TABLET PO SCH (10:59)
[2019-12-14] MEDS: DIGOXIN 0.125 MG TABLET PO SCH ×2 (14:54→18:30)
[2019-12-14] MEDS ORDERED: FUROSEMIDE 40 MG/4 ML VIAL IV SCH (15:23)
[2019-12-14] MEDS: ZALEPLON 5 MG CAPSULE PO PRN (21:19)
[2019-12-14] MEDS: ATORVASTATIN 20 MG TABLET PO SCH (21:19)
[2019-12-14] MEDS: FUROSEMIDE INJ 200 MG in SODIUM CHLORIDE 0.9% 50 ML IV SCH (23:54)
[2019-12-15 05:26] LABS: Basophils % 0.5 % (0.0-0.8); Eosinophils # 0.1 10*3/uL (0.0-0.87); Eosinophils % 0.8 % (0.00-10.9); Hematocrit 24.4 VOL% (42.0-52.0); Immature Granulocytes % 0.3 %; Immature Granulocytes Absolute 0.02 #; Lymphocytes # 0.5 10*3/uL (1.4-4.0); Lymphocytes % 8.1 % (21.2-54.2); Mean Corpuscular HGB Conc 32.8 GM/DL (32-36); Mean Corpuscular Volume 83.8 FL (87-102); Mean Platelet Volume 12.2 FL (9.6-12.0); Monocytes % 10.1 % (1.7-12.7); NRBC # 0.45 10*3/uL; Neutrophils % 80.2 % (38.7-73.9); Platelet Count 271 T/CUMM (130-400); Red Blood Count 2.91 MC/CUMM (3.8-5.5); Red Cell Distribution Width 19.3 % (9.3-17.3)
[2019-12-15 05:48] LABS: Calcium 9.1 MG/DL (8.5-10.1); Osmolality,Calculated 277.5 MOS/KG (273-304)
[2019-12-15] MEDS: DIGOXIN 0.125 MG TABLET PO SCH (10:02)
[2019-12-15] MEDS: AMIODARONE 200 MG TABLET PO SCH (10:02)
[2019-12-15] MEDS: metOLazone 5 MG TABLET PO SCH (10:03)
[2019-12-15] MEDS: ISOSORBIDE DINITRATE 20 MG TABLET PO SCH ×3 (10:03→21:20)
[2019-12-15] MEDS: POTASSIUM CHLORIDE 20 MEQ TABLET PO PRN (10:03)
[2019-12-15] MEDS: PANTOPRAZOLE 40 MG TABLET PO SCH (10:03)
[2019-12-15] MEDS: hydrALAZINE 25 MG TABLET PO SCH ×3 (10:03→21:20)
[2019-12-15] MEDS: FUROSEMIDE INJ 200 MG in SODIUM CHLORIDE 0.9% 50 ML IV SCH ×2 (10:08→21:21)
[2019-12-15] MEDS: DOBUTamine 500 MG/250 ML PREMIX IV SCH (12:47)
[2019-12-15] MEDS: ATORVASTATIN 20 MG TABLET PO SCH (21:20)
[2019-12-16 04:56] LABS: Basophils % 0.4 % (0.0-0.8); Eosinophils # 0.1 10*3/uL (0.0-0.87); Eosinophils % 1.8 % (0.00-10.9); Hematocrit 23.3 VOL% (42.0-52.0); Hemoglobin 7.7 GM/DL (14.0-18.0); Immature Granulocytes % 0.4 %; Immature Granulocytes Absolute 0.02 #; Lymphocytes # 0.4 10*3/uL (1.4-4.0); Lymphocytes % 8.5 % (21.2-54.2); Mean Corpuscular Volume 82.9 FL (87-102); Mean Platelet Volume 11.2 FL (9.6-12.0); Monocytes % 9.7 % (1.7-12.7); NRBC # 0.36 10*3/uL; Neutrophils % 79.2 % (38.7-73.9); Platelet Count 241 T/CUMM (130-400); Red Blood Count 2.81 MC/CUMM (3.8-5.5); Red Cell Distribution Width 19.3 % (9.3-17.3); White Blood Count 5.1 T/CUMM (4-12)
[2019-12-16 05:37] LABS: Calcium 9.1 MG/DL (8.5-10.1); Osmolality,Calculated 277.5 MOS/KG (273-304)
[2019-12-16] MEDS: AMIODARONE 200 MG TABLET PO SCH (09:21)
[2019-12-16] MEDS: DIGOXIN 0.125 MG TABLET PO SCH (09:21)
[2019-12-16] MEDS: ISOSORBIDE DINITRATE 20 MG TABLET PO SCH ×3 (09:22→21:20)
[2019-12-16] MEDS: POTASSIUM CHLORIDE 20 MEQ TABLET PO PRN ×2 (09:22→12:50)
[2019-12-16] MEDS: PANTOPRAZOLE 40 MG TABLET PO SCH (09:22)
[2019-12-16] MEDS: metOLazone 5 MG TABLET PO SCH (09:22)
[2019-12-16] MEDS: hydrALAZINE 25 MG TABLET PO SCH ×3 (09:22→22:14)
[2019-12-16] MEDS: FUROSEMIDE INJ 200 MG in SODIUM CHLORIDE 0.9% 50 ML IV SCH ×2 (09:23→22:14)
[2019-12-16] MEDS: DOBUTamine 500 MG/250 ML PREMIX IV SCH ×2 (12:52→14:54)
[2019-12-16] MEDS ORDERED: SODIUM CHLORIDE 0.9% 1,000 ML IV PRN (15:05)
[2019-12-16] MEDS: ATORVASTATIN 20 MG TABLET PO SCH (21:20)
[2019-12-17 05:33] LABS: Basophils % 0.2 % (0.0-0.8); Eosinophils # 0.1 10*3/uL (0.0-0.87); Eosinophils % 1.3 % (0.00-10.9); Hematocrit 26.1 VOL% (42.0-52.0); Hemoglobin 8.5 GM/DL (14.0-18.0); Immature Granulocytes % 0.5 %; Immature Granulocytes Absolute 0.03 #; Lymphocytes # 0.4 10*3/uL (1.4-4.0); Lymphocytes % 7.8 % (21.2-54.2); Mean Corpuscular HGB Conc 32.6 GM/DL (32-36); Mean Corpuscular Volume 84.2 FL (87-102); Mean Platelet Volume 11.8 FL (9.6-12.0); Monocytes % 9.4 % (1.7-12.7); NRBC # 0.25 10*3/uL; Neutrophils % 80.8 % (38.7-73.9); Platelet Count 251 T/CUMM (130-400); Red Cell Distribution Width 18.8 % (9.3-17.3); White Blood Count 5.5 T/CUMM (4-12)
[2019-12-17 05:52] LABS: Calcium 9.4 MG/DL (8.5-10.1); Osmolality,Calculated 275.5 MOS/KG (273-304)
[2019-12-17] MEDS: metOLazone 5 MG TABLET PO SCH (09:24)
[2019-12-17] MEDS: POTASSIUM CHLORIDE 20 MEQ TABLET PO PRN ×4 (09:24→17:06)
[2019-12-17] MEDS: DIGOXIN 0.125 MG TABLET PO SCH (09:25)
[2019-12-17] MEDS: hydrALAZINE 25 MG TABLET PO SCH (09:25)
[2019-12-17] MEDS: PANTOPRAZOLE 40 MG TABLET PO SCH (09:25)
[2019-12-17] MEDS: AMIODARONE 200 MG TABLET PO SCH (09:25)
[2019-12-17] MEDS: ISOSORBIDE DINITRATE 20 MG TABLET PO SCH ×3 (09:25→21:10)
[2019-12-17] MEDS: FUROSEMIDE INJ 200 MG in SODIUM CHLORIDE 0.9% 50 ML IV SCH ×2 (10:37→21:11)
[2019-12-17] MEDS: DOBUTamine 500 MG/250 ML PREMIX IV SCH ×2 (14:38→18:45)
[2019-12-17] MEDS: ATORVASTATIN 20 MG TABLET PO SCH (21:10)
[2019-12-18 06:22] LABS: Basophils % 0.5 % (0.0-0.8); Eosinophils # 0.1 10*3/uL (0.0-0.87); Eosinophils % 1.6 % (0.00-10.9); Hematocrit 27.6 VOL% (42.0-52.0); Hemoglobin 8.9 GM/DL (14.0-18.0); Immature Granulocytes % 0.4 %; Immature Granulocytes Absolute 0.02 #; Lymphocytes # 0.5 10*3/uL (1.4-4.0); Lymphocytes % 8.8 % (21.2-54.2); Mean Corpuscular HGB Conc 32.2 GM/DL (32-36); Mean Corpuscular Volume 84.1 FL (87-102); Mean Platelet Volume 11.2 FL (9.6-12.0); Monocytes % 11.5 % (1.7-12.7); NRBC # 0.14 10*3/uL; Neutrophils % 77.2 % (38.7-73.9); Platelet Count 250 T/CUMM (130-400); Red Blood Count 3.28 MC/CUMM (3.8-5.5); Red Cell Distribution Width 18.9 % (9.3-17.3); White Blood Count 5.5 T/CUMM (4-12)
[2019-12-18 06:33] LABS: Calcium 9.8 MG/DL (8.5-10.1); Osmolality,Calculated 268.8 MOS/KG (273-304)
[2019-12-18] MEDS: DIGOXIN 0.125 MG TABLET PO SCH (09:12)
[2019-12-18] MEDS: ISOSORBIDE DINITRATE 20 MG TABLET PO SCH ×3 (09:14→21:16)
[2019-12-18] MEDS: PANTOPRAZOLE 40 MG TABLET PO SCH (09:15)
[2019-12-18] MEDS: metOLazone 5 MG TABLET PO SCH (09:15)
[2019-12-18] MEDS: POTASSIUM CHLORIDE 20 MEQ TABLET PO PRN ×4 (09:15→23:11)
[2019-12-18] MEDS: AMIODARONE 200 MG TABLET PO SCH (09:15)
[2019-12-18] MEDS: FUROSEMIDE INJ 200 MG in SODIUM CHLORIDE 0.9% 50 ML IV SCH ×2 (10:00→21:16)
[2019-12-18] MEDS ORDERED: DOBUTamine 500 MG/250 ML PREMIX IV SCH (11:30)
[2019-12-18] MEDS ORDERED: METOPROLOL SUCCINATE XL 25 MG TABLET PO SCH (19:00)
[2019-12-18] MEDS: METOPROLOL SUCCINATE XL 25 MG TABLET PO SCH (21:17)
[2019-12-18] MEDS: ATORVASTATIN 20 MG TABLET PO SCH (21:17)
[2019-12-19 05:10] LABS: Basophils % 0.6 % (0.0-0.8); Eosinophils # 0.2 10*3/uL (0.0-0.87); Eosinophils % 2.8 % (0.00-10.9); Hematocrit 29.9 VOL% (42.0-52.0); Hemoglobin 9.8 GM/DL (14.0-18.0); Immature Granulocytes % 0.2 %; Immature Granulocytes Absolute 0.01 #; Lymphocytes # 0.5 10*3/uL (1.4-4.0); Lymphocytes % 8.3 % (21.2-54.2); Mean Corpuscular HGB Conc 32.8 GM/DL (32-36); Mean Corpuscular Volume 83.8 FL (87-102); Mean Platelet Volume 12.1 FL (9.6-12.0); Monocytes % 10.7 % (1.7-12.7); NRBC # 0.17 10*3/uL; Neutrophils % 77.4 % (38.7-73.9); Platelet Count 298 T/CUMM (130-400); Red Blood Count 3.57 MC/CUMM (3.8-5.5); White Blood Count 6.4 T/CUMM (4-12)
[2019-12-19 05:48] LABS: Calcium 9.3 MG/DL (8.5-10.1); Osmolality,Calculated 264.2 MOS/KG (273-304)
[2019-12-19] MEDS: DIGOXIN 0.125 MG TABLET PO SCH (09:56)
[2019-12-19] MEDS: ISOSORBIDE DINITRATE 20 MG TABLET PO SCH ×3 (09:56→21:24)
[2019-12-19] MEDS: FUROSEMIDE 80 MG TABLET PO SCH ×2 (09:56→16:20)
[2019-12-19] MEDS: PANTOPRAZOLE 40 MG TABLET PO SCH (09:57)
[2019-12-19] MEDS: METOPROLOL SUCCINATE XL 25 MG TABLET PO SCH ×2 (09:57→21:24)
[2019-12-19] MEDS: AMIODARONE 200 MG TABLET PO SCH (09:58)
[2019-12-19] MEDS: metOLazone 5 MG TABLET PO SCH (10:26)
[2019-12-19] MEDS: ATORVASTATIN 20 MG TABLET PO SCH (21:24)
[2019-12-20 04:55] LABS: Basophils # 0.1 10*3/uL (0.0-0.2); Basophils % 1.1 % (0.0-0.8); Eosinophils # 0.2 10*3/uL (0.0-0.87); Eosinophils % 3.9 % (0.00-10.9); Hematocrit 29.8 VOL% (42.0-52.0); Hemoglobin 9.6 GM/DL (14.0-18.0); Immature Granulocytes % 0.5 %; Immature Granulocytes Absolute 0.03 #; Lymphocytes # 0.6 10*3/uL (1.4-4.0); Lymphocytes % 10.5 % (21.2-54.2); Mean Corpuscular HGB Conc 32.2 GM/DL (32-36); Mean Corpuscular Volume 84.2 FL (87-102); Mean Platelet Volume 11.5 FL (9.6-12.0); Monocytes % 10.5 % (1.7-12.7); NRBC # 0.12 10*3/uL; Neutrophils % 73.5 % (38.7-73.9); Platelet Count 293 T/CUMM (130-400); Red Blood Count 3.54 MC/CUMM (3.8-5.5); Red Cell Distribution Width 19.6 % (9.3-17.3); White Blood Count 5.7 T/CUMM (4-12)
[2019-12-20 05:22] LABS: Calcium 9.5 MG/DL (8.5-10.1); Osmolality,Calculated 273.8 MOS/KG (273-304)
[2019-12-20] MEDS ORDERED: TORSEMIDE 20 MG TABLET PO SCH (09:00)
[2019-12-20] MEDS: DIGOXIN 0.125 MG TABLET PO SCH (09:09)
[2019-12-20] MEDS: ISOSORBIDE DINITRATE 20 MG TABLET PO SCH (09:11)
[2019-12-20] MEDS: POTASSIUM CHLORIDE 20 MEQ TABLET PO PRN (09:11)
[2019-12-20] MEDS: PANTOPRAZOLE 40 MG TABLET PO SCH (09:12)
[2019-12-20] MEDS: metOLazone 5 MG TABLET PO SCH (09:12)
[2019-12-20] MEDS: METOPROLOL SUCCINATE XL 25 MG TABLET PO SCH (09:13)
[2019-12-20] MEDS: AMIODARONE 200 MG TABLET PO SCH (09:13)
[2019-12-20] MEDS ORDERED: SACUBITRIL/VALSARTAN 49-51 MG TABLET PO SCH (12:19)
[2019-12-20 12:39] VITALS: BP 92/58
== END 2019-12-20 14:25 | disposition hospice, home (50) | DRG 194 ==
LOC: N.4E 08:38 → N.TELES 12-08 14:11
PROVIDERS: ADMIT Internal Medicine Cardiovascular Disease; ATTEND Internal Medicine Cardiovascular Disease

== ENCOUNTER 2020-02-09 15:33 | Inpatient (IN) ==
[2020-02-09] MEDS ORDERED: SODIUM CHLORIDE 0.9% 500 ML IV STA (18:09)
[2020-02-09] MEDS ORDERED: ONDANSETRON 4 MG/2 ML VIAL IV STA (18:09)
[2020-02-09 18:18] LABS: Hematocrit 40.2 VOL% (42.0-52.0); Hemoglobin 13.6 GM/DL (14.0-18.0); Immature Granulocytes % 0.5 %; Immature Granulocytes Absolute 0.03 #; Lymphocytes # 0.2 10*3/uL (1.4-4.0); Lymphocytes % 3.8 % (21.2-54.2); Mean Corpuscular HGB Conc 33.8 GM/DL (32-36); Mean Corpuscular Volume 80.2 FL (87-102); Mean Platelet Volume 11.1 FL (9.6-12.0); Monocytes % 5.1 % (1.7-12.7); Neutrophils % 90.6 % (38.7-73.9); Platelet Count 238 T/CUMM (130-400); Red Blood Count 5.01 MC/CUMM (3.8-5.5); Red Cell Distribution Width 18.1 % (9.3-17.3)
[2020-02-09 18:40] LABS: Albumin 4.7 G/DL (3.4-5.0); Bilirubin,Total 0.7 MG/DL (0.2-1.0); Calcium 10.4 MG/DL (8.5-10.1); Osmolality,Calculated 359.5 MOS/KG (273-304); Total Protein 9.1 G/DL (6.4-8.3)
[2020-02-09] MEDS ORDERED: ASPIRIN CHEW 81 MG TABLET PO STA (19:04)
[2020-02-09 19:07] LABS: Anisocytosis Slight; Burr Cells Slight; Lymphocytes 10 % (20-55); Microcytosis Slight; Platelet Estimate Normal; Poikilocytosis Slight; Segmented Neutrophils 89 % (50-85); Total Cells Counted 100
[2020-02-09] MEDS ORDERED: DEXTROSE 10% 250 ML BAG IV PRN (19:27)
[2020-02-09] MEDS ORDERED: GLUCAGON 1 MG VIAL IM PRN (19:27)
[2020-02-09] MEDS ORDERED: ONDANSETRON 4 MG/2 ML VIAL IV PRN (19:32)
[2020-02-09] MEDS ORDERED: ZALEPLON 5 MG CAPSULE PO PRN (19:32)
[2020-02-09 21:01] LABS: Apearance,Urine CLEAR (Clear); Bilirubin,Urine Negative (Negative); Blood, Urine Small mg/dL (Negative); Glucose,Urine (UA) Negative (Negative); Hyaline Casts,Urine 4 /LPF (0-3); Ketones,Urine Negative (Negative); Mucus,Urine Occasional /LPF (Occasional); Nitrite,Urine Negative (Negative); Protein,Urine Negative; RBC,Urine <1 /HPF (0-4); Squamous Epithelial Cell,Urine Occasional /HPF (0-10); Urine Color Yellow (Yellow); Urine Urobilinogen < 2.0 EU/DL (0.2-1.0)
[2020-02-09] MEDS: ENOXAPARIN 30 MG/0.3 ML SYRINGE SUBCUT SCH (22:04)
[2020-02-09] MEDS: SODIUM CHLORIDE 0.9% 1,000 ML IV SCH (22:05)
[2020-02-10 06:22] LABS: Eosinophils % 0.4 % (0.00-10.9); Hematocrit 37.4 VOL% (42.0-52.0); Hemoglobin 12.9 GM/DL (14.0-18.0); Immature Granulocytes % 0.4 %; Immature Granulocytes Absolute 0.03 #; Lymphocytes # 0.4 10*3/uL (1.4-4.0); Lymphocytes % 5.2 % (21.2-54.2); Mean Corpuscular HGB Conc 34.5 GM/DL (32-36); Mean Corpuscular Volume 77.8 FL (87-102); Mean Platelet Volume 12.1 FL (9.6-12.0); Platelet Count 219 T/CUMM (130-400); Red Blood Count 4.81 MC/CUMM (3.8-5.5); Red Cell Distribution Width 18.1 % (9.3-17.3); White Blood Count 6.7 T/CUMM (4-12)
[2020-02-10 06:42] LABS: Calcium 10.2 MG/DL (8.5-10.1); Osmolality,Calculated 350.5 MOS/KG (273-304)
[2020-02-10] MEDS: METOPROLOL SUCCINATE XL 25 MG TABLET PO SCH ×3 (10:02→20:54)
[2020-02-10] MEDS: PANTOPRAZOLE 40 MG TABLET PO SCH (10:02)
[2020-02-10] MEDS: SODIUM CHLORIDE 0.9% 1,000 ML IV SCH ×2 (15:34→18:29)
[2020-02-10] MEDS: ENOXAPARIN 30 MG/0.3 ML SYRINGE SUBCUT SCH (20:55)
[2020-02-10] MEDS: ACETAMINOPHEN 325 MG TABLET PO PRN (22:22)
[2020-02-11 06:08] LABS: Basophils % 0.4 % (0.0-0.8); Eosinophils # 0.1 10*3/uL (0.0-0.87); Eosinophils % 1.3 % (0.00-10.9); Hematocrit 35.9 VOL% (42.0-52.0); Hemoglobin 12.2 GM/DL (14.0-18.0); Immature Granulocytes % 0.4 %; Immature Granulocytes Absolute 0.02 #; Lymphocytes # 0.3 10*3/uL (1.4-4.0); Lymphocytes % 6.6 % (21.2-54.2); Mean Corpuscular Volume 79.4 FL (87-102); Mean Platelet Volume 11.8 FL (9.6-12.0); Monocytes % 15.4 % (1.7-12.7); Neutrophils % 75.9 % (38.7-73.9); Red Blood Count 4.52 MC/CUMM (3.8-5.5); White Blood Count 5.2 T/CUMM (4-12)
[2020-02-11 06:13] LABS: Platelet Count 144 T/CUMM (130-400)
[2020-02-11 06:35] LABS: Hypochromasia Slight; Ovalocytes Slight; Platelet Estimate Adequate
[2020-02-11 06:58] LABS: Calcium 10.2 MG/DL (8.5-10.1); Osmolality,Calculated 342.5 MOS/KG (273-304)
[2020-02-11] MEDS ORDERED: POTASSIUM CHLORIDE 20 MEQ TABLET PO ONE (08:57)
[2020-02-11] MEDS: ISOSORBIDE DINITRATE 10 MG TABLET PO SCH ×3 (09:39→21:52)
[2020-02-11] MEDS: METOPROLOL SUCCINATE XL 25 MG TABLET PO SCH ×2 (09:40→21:54)
[2020-02-11] MEDS: PANTOPRAZOLE 40 MG TABLET PO SCH (09:40)
[2020-02-11] MEDS: hydrALAZINE 10 MG TABLET PO SCH ×3 (09:40→21:52)
[2020-02-11] MEDS ORDERED: SODIUM CHLORIDE 0.9% 250 ML IV ONE ×2 (10:53)
[2020-02-11] MEDS: SODIUM CHLORIDE 0.9% 1,000 ML IV SCH (14:01)
[2020-02-11] MEDS: ENOXAPARIN 30 MG/0.3 ML SYRINGE SUBCUT SCH (21:54)
[2020-02-12] MEDS: ACETAMINOPHEN 325 MG TABLET PO PRN (00:58)
[2020-02-12 06:35] LABS: Basophils % 0.4 % (0.0-0.8); Eosinophils # 0.2 10*3/uL (0.0-0.87); Eosinophils % 3.4 % (0.00-10.9); Hematocrit 33.2 VOL% (42.0-52.0); Hemoglobin 11.2 GM/DL (14.0-18.0); Immature Granulocytes % 0.2 %; Immature Granulocytes Absolute 0.01 #; Lymphocytes # 0.4 10*3/uL (1.4-4.0); Lymphocytes % 7.7 % (21.2-54.2); Mean Corpuscular HGB Conc 33.7 GM/DL (32-36); Mean Corpuscular Volume 78.9 FL (87-102); Mean Platelet Volume 11.9 FL (9.6-12.0); Monocytes % 15.1 % (1.7-12.7); Neutrophils % 73.2 % (38.7-73.9); Platelet Count 144 T/CUMM (130-400); Red Blood Count 4.21 MC/CUMM (3.8-5.5); White Blood Count 4.7 T/CUMM (4-12)
[2020-02-12 06:57] LABS: Calcium 9.8 MG/DL (8.5-10.1); Osmolality,Calculated 327.8 MOS/KG (273-304)
[2020-02-12 07:46] LABS: Hypochromasia 1+; Ovalocytes Slight; Platelet Estimate Adequate
[2020-02-12] MEDS ORDERED: POTASSIUM CHLORIDE 20 MEQ TABLET PO ONE (07:56)
[2020-02-12] MEDS: PANTOPRAZOLE 40 MG TABLET PO SCH (08:52)
[2020-02-12] MEDS: METOPROLOL SUCCINATE XL 25 MG TABLET PO SCH (08:52)
[2020-02-12] MEDS ORDERED: METOPROLOL SUCCINATE XL 25 MG TABLET PO ONE (08:53)
[2020-02-12] MEDS: SODIUM CHLORIDE 0.9% 1,000 ML IV SCH (08:53)
[2020-02-12] MEDS: hydrALAZINE 25 MG TABLET PO SCH ×3 (09:17→20:35)
[2020-02-12] MEDS ORDERED: BACLOFEN 10 MG TABLET PO PRN (11:28)
[2020-02-12] MEDS: AMIODARONE 200 MG TABLET PO SCH (12:12)
[2020-02-12] MEDS ORDERED: ADENOSINE 6 MG/2 ML VIAL ONE (12:26)
[2020-02-12] MEDS: ATORVASTATIN 20 MG TABLET PO SCH (20:35)
[2020-02-12] MEDS: ENOXAPARIN 30 MG/0.3 ML SYRINGE SUBCUT SCH (20:35)
[2020-02-13] MEDS: SODIUM CHLORIDE 0.9% 1,000 ML IV SCH (05:07)
[2020-02-13 06:15] LABS: Basophils % 0.4 % (0.0-0.8); Eosinophils # 0.2 10*3/uL (0.0-0.87); Eosinophils % 3.1 % (0.00-10.9); Hematocrit 33.9 VOL% (42.0-52.0); Hemoglobin 11.2 GM/DL (14.0-18.0); Immature Granulocytes % 0.2 %; Immature Granulocytes Absolute 0.01 #; Lymphocytes # 0.3 10*3/uL (1.4-4.0); Lymphocytes % 6.2 % (21.2-54.2); Mean Corpuscular Volume 81.1 FL (87-102); Mean Platelet Volume 11.2 FL (9.6-12.0); Monocytes % 16.9 % (1.7-12.7); Neutrophils % 73.2 % (38.7-73.9); Platelet Count 166 T/CUMM (130-400); Red Blood Count 4.18 MC/CUMM (3.8-5.5); Red Cell Distribution Width 18.5 % (9.3-17.3); White Blood Count 5.1 T/CUMM (4-12)
[2020-02-13 06:38] LABS: Eosinophils 2 % (0-10); Hypochromasia 1+; Lymphocytes 7 % (20-55); Ovalocytes Slight; Platelet Estimate Adequate; Segmented Neutrophils 76 % (50-85); Total Cells Counted 100
[2020-02-13 06:40] LABS: Calcium 9.8 MG/DL (8.5-10.1); Osmolality,Calculated 310.8 MOS/KG (273-304)
[2020-02-13] MEDS: ASPIRIN EC 81 MG TABLET PO SCH (09:33)
[2020-02-13] MEDS: PANTOPRAZOLE 40 MG TABLET PO SCH (09:33)
[2020-02-13] MEDS: AMIODARONE 200 MG TABLET PO SCH (09:34)
[2020-02-13] MEDS ORDERED: POTASSIUM CHLORIDE 20 MEQ TABLET PO ONE (09:48)
[2020-02-13] MEDS: METOPROLOL SUCCINATE XL 25 MG TABLET PO SCH (10:54)
[2020-02-13] MEDS: hydrALAZINE 25 MG TABLET PO SCH ×3 (10:56→21:11)
[2020-02-13] MEDS: ISOSORBIDE DINITRATE 20 MG TABLET PO SCH ×3 (13:55→21:11)
[2020-02-13] MEDS: ATORVASTATIN 20 MG TABLET PO SCH (21:11)
[2020-02-13] MEDS: ENOXAPARIN 30 MG/0.3 ML SYRINGE SUBCUT SCH (21:11)
[2020-02-14 07:10] LABS: Basophils % 0.7 % (0.0-0.8); Eosinophils # 0.2 10*3/uL (0.0-0.87); Eosinophils % 3.3 % (0.00-10.9); Hematocrit 33.5 VOL% (42.0-52.0); Hemoglobin 10.7 GM/DL (14.0-18.0); Immature Granulocytes % 0.4 %; Immature Granulocytes Absolute 0.02 #; Lymphocytes # 0.5 10*3/uL (1.4-4.0); Lymphocytes % 9.5 % (21.2-54.2); Mean Corpuscular HGB Conc 31.9 GM/DL (32-36); Mean Corpuscular Volume 83.5 FL (87-102); Mean Platelet Volume 11.2 FL (9.6-12.0); Monocytes % 13.8 % (1.7-12.7); Neutrophils % 72.3 % (38.7-73.9); Platelet Count 175 T/CUMM (130-400); Red Blood Count 4.01 MC/CUMM (3.8-5.5); Red Cell Distribution Width 18.6 % (9.3-17.3); White Blood Count 5.4 T/CUMM (4-12)
[2020-02-14 08:29] VITALS: BP 83/61
[2020-02-14] MEDS: PANTOPRAZOLE 40 MG TABLET PO SCH (08:45)
[2020-02-14] MEDS: METOPROLOL SUCCINATE XL 25 MG TABLET PO SCH (08:45)
[2020-02-14] MEDS: ISOSORBIDE DINITRATE 20 MG TABLET PO SCH (08:45)
[2020-02-14] MEDS: AMIODARONE 200 MG TABLET PO SCH (08:45)
[2020-02-14] MEDS: ASPIRIN EC 81 MG TABLET PO SCH (08:45)
[2020-02-14] MEDS: hydrALAZINE 25 MG TABLET PO SCH (08:46)
[2020-02-14 08:53] LABS: Calcium 9.9 MG/DL (8.5-10.1); Osmolality,Calculated 289.1 MOS/KG (273-304)
[2020-02-14] MEDS ORDERED: SACUBITRIL/VALSARTAN 49-51 MG TABLET PO SCH (09:00)
[2020-02-14] MEDS ORDERED: TORSEMIDE 20 MG TABLET PO SCH (09:03)
== END 2020-02-14 12:05 | disposition home health service (06) | DRG 469 ==
LOC: N.ED 15:33 → N.EDINP 19:32 → N.TELEN 21:08
PROVIDERS: ADMIT Internal Medicine Geriatric Medicine; ATTEND Internal Medicine Cardiovascular Disease

== ENCOUNTER 2020-02-19 15:08 | Inpatient (IN) ==
[2020-02-19] MEDS ORDERED: SODIUM CHLORIDE 0.9% 500 ML IV STA (15:48)
[2020-02-19 16:21] LABS: Basophils % 0.8 % (0.0-0.8); Hematocrit 28.6 VOL% (42.0-52.0); Hemoglobin 9.8 GM/DL (14.0-18.0); Immature Granulocytes % 0.2 %; Immature Granulocytes Absolute 0.01 #; Lymphocytes # 0.3 10*3/uL (1.4-4.0); Lymphocytes % 6.4 % (21.2-54.2); Mean Corpuscular HGB Conc 34.3 GM/DL (32-36); Mean Platelet Volume 10.2 FL (9.6-12.0); Monocytes % 11.6 % (1.7-12.7); Platelet Count 181 T/CUMM (130-400); Red Blood Count 3.62 MC/CUMM (3.8-5.5); Red Cell Distribution Width 17.9 % (9.3-17.3)
[2020-02-19 16:35] LABS: Alanine Aminotransferase 26 U/L (16-61); Albumin 3.6 G/DL (3.4-5.0); Alkaline Phosphatase 97 U/L (45-117); Aspartate Amino Transferase 19 U/L (0-37); Blood Urea Nitrogen 105 MG/DL (7-18); Calcium 7.6 MG/DL (8.5-10.1); Estimated Glom Filtration Rate 9 ML/MIN; Glucose 91 MG/DL (74-106); Osmolality,Calculated 276.1 MOS/KG (273-304); Thyroid Stimulating Hormone 0.647 uIU/ml (0.358-3.74); Total Protein 7.8 G/DL (6.4-8.3)
[2020-02-19 16:38] LABS: INR 1.1; PT Patient Result 11.4 SECS (9.8-11.9); Troponin I 0.081 NG/ML (0.00-0.045)
[2020-02-19] MEDS ORDERED: MAGNESIUM SULF RIDER 2 GM in PREMIX 1 EACH IV STA (17:05)
[2020-02-19] MEDS ORDERED: HYDROCORTISONE 100 MG VIAL IV STA (17:11)
[2020-02-19 17:18] LABS: Barbiturates Screen,Urine Negative (Negative); Benzodiazepines Screen,Urine Negative (Negative); Cannabinoid Screen,Urine Negative (Negative); Opiate Screen,Urine Negative (Negative); Phencyclidine Screen,Urine Negative (Negative)
[2020-02-19 17:35] LABS: Apearance,Urine CLEAR (Clear); Bilirubin,Urine Negative (Negative); Blood, Urine Negative (Negative); Glucose,Urine (UA) Negative (Negative); Hyaline Casts,Urine 3 /LPF (0-3); Ketones,Urine Negative (Negative); Nitrite,Urine Negative (Negative); Protein,Urine Negative; RBC,Urine <1 /HPF (0-4); Squamous Epithelial Cell,Urine Occasional /HPF (0-10); Urine Color Yellow (Yellow); Urine Specific Gravity 1.008 (1.001-1.035); Urine Urobilinogen < 2.0 EU/DL (0.2-1.0); WBC,Urine 1 /HPF (0-6)
[2020-02-19] MEDS ORDERED: GLUCAGON 1 MG VIAL IM PRN (17:39)
[2020-02-19] MEDS ORDERED: DEXTROSE 10% 250 ML BAG IV PRN (17:39)
[2020-02-19] MEDS ORDERED: ONDANSETRON 4 MG/2 ML VIAL IV PRN (17:39)
[2020-02-19] MEDS ORDERED: SODIUM CHLORIDE 0.9% 250 ML IV ONE (17:47)
[2020-02-19] MEDS ORDERED: SODIUM CHLORIDE 0.9% 1,000 ML IV SCH (18:00)
[2020-02-19] MEDS ORDERED: SODIUM CHLORIDE 0.9% 1,000 ML IV ONE (21:56)
[2020-02-19] MEDS: SODIUM CHLORIDE 0.9% 1,000 ML IV SCH (23:00)
[2020-02-20 05:07] LABS: Basophils % 0.2 % (0.0-0.8); Hematocrit 29.6 VOL% (42.0-52.0); Hemoglobin 10.1 GM/DL (14.0-18.0); Immature Granulocytes % 0.6 %; Immature Granulocytes Absolute 0.03 #; Lymphocytes # 0.3 10*3/uL (1.4-4.0); Mean Corpuscular HGB Conc 34.1 GM/DL (32-36); Mean Corpuscular Volume 80.7 FL (87-102); Mean Platelet Volume 10.3 FL (9.6-12.0); Monocytes % 8.7 % (1.7-12.7); Neutrophils % 83.5 % (38.7-73.9); Platelet Count 197 T/CUMM (130-400); Red Blood Count 3.67 MC/CUMM (3.8-5.5); Red Cell Distribution Width 18.1 % (9.3-17.3); White Blood Count 4.7 T/CUMM (4-12)
[2020-02-20 05:32] LABS: Calcium 7.6 MG/DL (8.5-10.1); Osmolality,Calculated 287.1 MOS/KG (273-304)
[2020-02-20] MEDS ORDERED: DOBUTamine 500 MG/250 ML PREMIX IV PRN (06:15)
[2020-02-20] MEDS ORDERED: DOBUTamine 500 MG/250 ML PREMIX IV SCH ×2 (06:30)
[2020-02-20] MEDS ORDERED: POTASSIUM CHLORIDE 20 MEQ TABLET PO SCH (09:00)
[2020-02-20] MEDS: AMIODARONE 200 MG TABLET PO SCH (09:17)
[2020-02-20] MEDS: SODIUM CHLORIDE 0.9% 1,000 ML IV SCH ×2 (09:22→15:05)
[2020-02-20] MEDS: PANTOPRAZOLE 40 MG TABLET PO SCH (09:25)
[2020-02-20] MEDS: ASPIRIN EC 81 MG TABLET PO SCH (09:25)
[2020-02-20] MEDS ORDERED: SODIUM CHLORIDE 0.9% 500 ML IV SCH (11:00)
[2020-02-20] MEDS ORDERED: SODIUM CHLORIDE 0.9% 500 ML IV ONE (13:35)
[2020-02-20] MEDS ORDERED: POTASSIUM CHLORIDE 20 MEQ TABLET PO ONE (15:30)
[2020-02-20 20:40] LABS: Calcium 7.6 MG/DL (8.5-10.1); Osmolality,Calculated 289.4 MOS/KG (273-304)
[2020-02-20 20:48] LABS: Basophils % 0.6 % (0.0-0.8); Eosinophils % 0.8 % (0.00-10.9); Hematocrit 25.7 VOL% (42.0-52.0); Hemoglobin 8.3 GM/DL (14.0-18.0); Immature Granulocytes % 0.4 %; Immature Granulocytes Absolute 0.02 #; Lymphocytes # 0.4 10*3/uL (1.4-4.0); Lymphocytes % 7.2 % (21.2-54.2); Mean Corpuscular HGB Conc 32.3 GM/DL (32-36); Mean Corpuscular Volume 83.4 FL (87-102); Mean Platelet Volume 9.9 FL (9.6-12.0); Monocytes % 9.7 % (1.7-12.7); Neutrophils % 81.3 % (38.7-73.9); Platelet Count 170 T/CUMM (130-400); Red Blood Count 3.08 MC/CUMM (3.8-5.5); Red Cell Distribution Width 18.5 % (9.3-17.3); White Blood Count 5.3 T/CUMM (4-12)
[2020-02-20] MEDS ORDERED: MAGNESIUM SULF RIDER 2 GM in PREMIX 1 EACH IV ONE (23:00)
[2020-02-21] MEDS: SODIUM CHLORIDE 0.9% 1,000 ML IV SCH ×3 (01:45→19:01)
[2020-02-21 06:03] LABS: Basophils % 0.9 % (0.0-0.8); Eosinophils # 0.1 10*3/uL (0.0-0.87); Hematocrit 25.6 VOL% (42.0-52.0); Hemoglobin 8.7 GM/DL (14.0-18.0); Immature Granulocytes % 0.2 %; Immature Granulocytes Absolute 0.01 #; Lymphocytes # 0.4 10*3/uL (1.4-4.0); Lymphocytes % 9.4 % (21.2-54.2); Mean Platelet Volume 10.1 FL (9.6-12.0); Monocytes % 11.1 % (1.7-12.7); Neutrophils % 76.4 % (38.7-73.9); Platelet Count 172 T/CUMM (130-400); Red Blood Count 3.16 MC/CUMM (3.8-5.5); Red Cell Distribution Width 18.6 % (9.3-17.3); White Blood Count 4.5 T/CUMM (4-12)
[2020-02-21] MEDS: MAGNESIUM OXIDE 400 MG TABLET PO SCH ×2 (08:21→20:48)
[2020-02-21] MEDS: AMIODARONE 200 MG TABLET PO SCH (08:21)
[2020-02-21] MEDS: ASPIRIN EC 81 MG TABLET PO SCH ×2 (08:21→11:56)
[2020-02-21] MEDS: PANTOPRAZOLE 40 MG TABLET PO SCH (08:22)
[2020-02-21 10:15] LABS: Calcium 8.1 MG/DL (8.5-10.1)
[2020-02-21] MEDS ORDERED: POTASSIUM CHLORIDE 20 MEQ TABLET PO ONE (10:52)
[2020-02-21] MEDS ORDERED: DOBUTamine 500 MG/250 ML PREMIX IV PRN (15:43)
[2020-02-21] MEDS ORDERED: METOPROLOL TARTRATE 25 MG TABLET PO SCH (21:00)
[2020-02-22] MEDS: ACETAMINOPHEN 325 MG TABLET PO PRN ×2 (01:52→22:13)
[2020-02-22 05:34] LABS: Basophils % 0.8 % (0.0-0.8); Eosinophils # 0.1 10*3/uL (0.0-0.87); Eosinophils % 2.8 % (0.00-10.9); Hematocrit 23.7 VOL% (42.0-52.0); Hemoglobin 7.8 GM/DL (14.0-18.0); Lymphocytes # 0.5 10*3/uL (1.4-4.0); Lymphocytes % 11.7 % (21.2-54.2); Mean Corpuscular HGB Conc 32.9 GM/DL (32-36); Mean Corpuscular Volume 82.3 FL (87-102); Mean Platelet Volume 10.3 FL (9.6-12.0); Monocytes % 13.3 % (1.7-12.7); Neutrophils % 71.4 % (38.7-73.9); Platelet Count 161 T/CUMM (130-400); Red Blood Count 2.88 MC/CUMM (3.8-5.5); Red Cell Distribution Width 18.8 % (9.3-17.3); White Blood Count 3.9 T/CUMM (4-12)
[2020-02-22 06:04] LABS: Calcium 8.3 MG/DL (8.5-10.1)
[2020-02-22] MEDS: SODIUM CHLORIDE 0.9% 1,000 ML IV SCH (06:52)
[2020-02-22] MEDS: PANTOPRAZOLE 40 MG TABLET PO SCH (08:39)
[2020-02-22] MEDS: AMIODARONE 200 MG TABLET PO SCH (08:39)
[2020-02-22] MEDS: MAGNESIUM OXIDE 400 MG TABLET PO SCH ×2 (08:39→21:25)
[2020-02-22] MEDS: ASPIRIN EC 81 MG TABLET PO SCH (08:39)
[2020-02-22] MEDS ORDERED: MAGNESIUM SULF RIDER 4 GM in PREMIX 1 EACH IV PRN (08:59)
[2020-02-22] MEDS: MAGNESIUM SULF RIDER 2 GM in PREMIX 1 EACH IV PRN (09:38)
[2020-02-22] MEDS ORDERED: SODIUM CHLORIDE 0.9% 1,000 ML IV PRN (12:58)
[2020-02-22] MEDS ORDERED: METOPROLOL SUCCINATE XL 25 MG TABLET PO ONE (13:29)
[2020-02-22] MEDS: hydrALAZINE 10 MG TABLET PO SCH ×2 (16:16→21:25)
[2020-02-22] MEDS: ISOSORBIDE DINITRATE 20 MG TABLET PO SCH ×2 (16:16→21:25)
[2020-02-22 18:58] LABS: Hematocrit 28.6 VOL% (42.0-52.0); Hemoglobin 9.2 GM/DL (14.0-18.0)
[2020-02-22] MEDS: METOPROLOL SUCCINATE XL 25 MG TABLET PO SCH (21:25)
[2020-02-23 06:35] LABS: Basophils % 0.7 % (0.0-0.8); Eosinophils # 0.1 10*3/uL (0.0-0.87); Eosinophils % 3.1 % (0.00-10.9); Hematocrit 26.6 VOL% (42.0-52.0); Hemoglobin 8.6 GM/DL (14.0-18.0); Immature Granulocytes % 0.4 %; Immature Granulocytes Absolute 0.02 #; Lymphocytes # 0.5 10*3/uL (1.4-4.0); Lymphocytes % 10.9 % (21.2-54.2); Mean Corpuscular HGB Conc 32.3 GM/DL (32-36); Mean Corpuscular Volume 84.2 FL (87-102); Mean Platelet Volume 9.6 FL (9.6-12.0); Monocytes % 10.5 % (1.7-12.7); Neutrophils % 74.4 % (38.7-73.9); Platelet Count 152 T/CUMM (130-400); Red Blood Count 3.16 MC/CUMM (3.8-5.5); Red Cell Distribution Width 18.3 % (9.3-17.3); White Blood Count 4.6 T/CUMM (4-12)
[2020-02-23 06:53] LABS: Calcium 8.1 MG/DL (8.5-10.1); Osmolality,Calculated 281.5 MOS/KG (273-304)
[2020-02-23 08:09] VITALS: BP 95/66
[2020-02-23] MEDS: ISOSORBIDE DINITRATE 20 MG TABLET PO SCH (08:31)
[2020-02-23] MEDS: hydrALAZINE 10 MG TABLET PO SCH (08:31)
[2020-02-23] MEDS: AMIODARONE 200 MG TABLET PO SCH (08:31)
[2020-02-23] MEDS: METOPROLOL SUCCINATE XL 25 MG TABLET PO SCH (08:32)
[2020-02-23] MEDS: MAGNESIUM OXIDE 400 MG TABLET PO SCH (08:33)
[2020-02-23] MEDS: PANTOPRAZOLE 40 MG TABLET PO SCH (08:33)
[2020-02-23] MEDS: MAGNESIUM SULF RIDER 2 GM in PREMIX 1 EACH IV PRN (08:34)
[2020-02-23] MEDS ORDERED: TORSEMIDE 20 MG TABLET PO SCH (09:00)
== END 2020-02-23 10:26 | disposition home health service (06) | DRG 469 ==
LOC: N.ED 15:08 → N.EDINP 15:08 → SUATTDRO 17:39 → N.ICU 02-20 08:21 → N.TELEN 02-22 11:26
PROVIDERS: ADMIT Internal Medicine; ATTEND Internal Medicine Cardiovascular Disease